=== PATIENT | male | born 1985 | race Caucasian/White ===

== ENCOUNTER 2017-08-31 01:07 | Emergency (ER) | payer SELFPAY ==
[2017-08-31] MEDS ORDERED: Morphine 10 MG/ML VIAL ONE (02:02)
[2017-08-31] MEDS ORDERED: Adacel (T-DAP) 0.5 ML VIAL ONE (02:25)
[2017-08-31] MEDS ORDERED: Lidocaine 1% (PF) 30 ML VIAL ONE (02:35)
[2017-08-31] MEDS ORDERED: Bupivacaine 0.5% 10 ML VIAL ONE (02:35)
[2017-08-31] MEDS ORDERED: Bacitracin Zinc 1 Packet ONE (02:56)
--- NOTE | 2017-08-31 08:49 | RAD ---
TWO VIEWS RIGHT HAND: DATE: 08/31/17. PROVIDED CLINICAL HISTORY: Fracture. FINDINGS: Comparison is made with the study performed earlier same date. Interval reduction of the fracture di slocation involving the 5th metacarpal base. Interval placement of ulnar splint. IMPRESSION: As above. POS: [facility]
--- NOTE | 2017-08-31 08:56 | RAD ---
THREE VIEWS RIGHT WRIST: DATE: 08/31/17. PROVIDED CLINICAL HISTORY: There is dorsal dislocation of the 4th and 5th metacarpal bases. There are several osseous fragments adjacent to the dislocated metacarpal bases. These may relate to fractures of the metacarpal bases versus the adjacent distal carpal row, namely hamate. IMPRESSION: Fourth and 5th metacarpal fracture dislocation. POS: [facility]
--- NOTE | 2017-08-31 08:57 | RAD ---
RIGHT HAND RADIOGRAPHS 3 VIEWS: DATE: 08/31/17. Provided CLINICAL HISTORY: Right hand pain status post injury. FINDINGS: Dislocation of 4th and 5th metacarpal bases dorsally with respect to the distal carpal row. Adjacent fracture fragments may be from the carpus or the dislocated metacarpal base/bases. No additional fr acture is evident. Alignment appears otherwise anatomic. IMPRESSION: Fourth and 5th metacarpal base fracture dislocation. POS: [facility]
== END 2017-08-31 04:07 | disposition home or self-care (01) ==
LOC: ERS 01:07
DX: S62.314A Displaced fracture of base of fourth metacarpal bone, right hand, initial encounter for closed fracture (principal); S62.316A Displaced fracture of base of fifth metacarpal bone, right hand, initial encounter for closed fracture; W22.01XA Walked into wall, initial encounter
CPT/HCPCS: 26605; 90471; 90715; 96361; 96374; J2001; J2270; J3490

== ENCOUNTER 2024-06-13 00:37 | Emergency (ER) | payer BC, OTHER ==
[2024-06-13] MEDS ORDERED: Dexamethasone 4 MG TAB ONE (01:59)
== END 2024-06-13 02:10 | disposition home or self-care (01) ==
LOC: ERS 00:37
DX: T78.40XA Allergy, unspecified, initial encounter (principal)
CPT/HCPCS: 99283; J8540

== ENCOUNTER 2024-06-15 05:06 | Emergency (ER) | payer BC ==
[2024-06-15 05:48] LABS: #Basophils 0.08 10x3/uL (0.0-0.2); %Basophils 0.8 % (0.0-1.0); %Eosinophils 1.1 % (0.0-10.0); %Lymphocytes 25.9 % (21.0-51.0); Hematocrit 42.9 % (42.0-52.0); Hemoglobin 14.5 g/dL (14.0-18.0); Mean Corpuscular HGB CONC 33.8 g/dL (32.0-36.0); Mean Corpuscular Hemoglobin 30.9 pg (27.0-31.0); Mean Corpuscular Volume 91.3 fL (78.0-98.0); Platelet Count 271 10x3/uL (130-400); RBC Distribution Width 12.6 % (11.5-14.5)
[2024-06-15 06:24] LABS: Acetaminophen Less than 10 mcg/mL (Less than 10); Alcohol Less than 10.0 mg/dL (Less than 10); Salicylate Less than 8.0 mg/dL (Less than 8.0)
[2024-06-15 06:27] LABS: Troponin I Less than 0.010 ng/mL (< 0.028)
[2024-06-15 06:28] LABS: ALT (SGPT) 116 U/L (Less than 45); AST (SGOT) 66 U/L (11-34); Albumin 4.4 g/dL (3.1-4.5); Alkaline Phosphatase 71 U/L (40-110); Anion Gap 16 mmol/L (10-20); BUN (Urea Nitrogen) 9 mg/dL (8.9-20.6); Bilirubin, Total 1.1 mg/dL (0.3-1.2); CK (CPK) 1250 U/L (30-200); Calc. Creatinine Clearance 0 mL/min (70-130); Calcium 9.5 mg/dL (7.8-10.44); Carbon Dioxide 23 mmol/L (22-29); Chloride 105 mmol/L (98-107); Estimated GFR 106; Globulin 3.1 g/dL (2.4-3.5); Glucose 105 mg/dL (70-105); Potassium 3.7 mmol/L (3.5-5.1); Protein, Total 7.5 g/dL (6.0-8.3); Sodium 140 mmol/L (136-145)
== END 2024-06-15 07:34 | disposition left against medical advice (07) ==
LOC: ERS 05:06
DX: R41.82 Altered mental status, unspecified (principal); F41.9 Anxiety disorder, unspecified; Z53.29 Procedure and treatment not carried out because of patient's decision for other reasons
CPT/HCPCS: 36415; 70450; 80053; 80307; 82140; 82550; 84443; 84484; 85025; 93005; 94760